=== PATIENT | male | born 1980 | race Caucasian/White ===

== ENCOUNTER → 2016-08-12 | Outpatient (CLI) | payer BC ==
--- NOTE | 2016-08-12 17:30 | REP ---
CT MAXILLOFACIAL WITHOUT CONTRAST: 08/12/2016: Clinical history: Chronic pansinusitis. Technique: Axial soft-tissue and bone windows with coronal bone window reconstructions. Findings: No prior study. There is extensive mucosal thickening and/or polypoid/mucous retention cyst appearance to the bilateral maxillary antra, right more than left. There is occlusion of the OMCs bilaterally due to mucosal thickening, right worse than left. Vestibular stenosis is also noted by mucosal thickening. The middle turbinate show small contra bullosa on the left effacement of the hiatus semilunaris on that side right hiatus semilunaris minimally intact with a small contra bullosa on the left. Ethmoid air cells show mucosal thickening. There is a polypoid enlargement of the right inferior turbinate anteriorly in the nasal air passage. Extensive mucosal thickening and opacification of the ethmoid air cells bilaterally. Frontal ethmoid recesses and inferior aspects of the frontal lobe show mucosal thickening opacification. Sphenoid sinuses show mucosal thickening. No air-fluid levels. There is no destructive lesion of bone. Mastoids, skull base, facial bones, and sinuses. Bony structures as well as orbits grossly intact. Impression: 1. Pansinusitis with mucous retention cyst and/or polyps in the maxillary sinuses and at the anterior aspect of the right inferior turbinate in the nasal air passage on the right. Ethmoid, sphenoid and frontal recess sinus mucosal thickening or opacification noted. Signed by Dennis Amaya MD 08/13/2016 10:07 A
== END ==
LOC: M RAD 15:54
PROVIDERS: ATTEND Otolaryngology
DX: J32.4 Chronic pansinusitis (principal); J34.1 Cyst and mucocele of nose and nasal sinus

== ENCOUNTER 2017-04-20 06:40 | Day surgery (SDC) | payer BC ==
[2017-04-20] MEDS: LR 1,000 ML IV (06:45)
[2017-04-20] MEDS ORDERED: LIDOCAINE 1% MDV 20ML VIAL SC (07:00)
[2017-04-20] MEDS ORDERED: LIDOCAINE 2% INJ 100 MG/5 ML SDV (FOR ANES.) As Ordered (08:07)
[2017-04-20] MEDS ORDERED: ROCURONIUM BROMIDE 50 MG/5 ML VIAL As Ordered (08:07)
[2017-04-20] MEDS ORDERED: dexameTHASONE 4 MG/ML 1ML VIAL (J1100) As Ordered (08:07)
[2017-04-20] MEDS ORDERED: PROPOFOL 200 MG/20 ML VIAL As Ordered (08:07)
[2017-04-20] MEDS ORDERED: fentaNYL 250 MCG/5 ML INJECTION (J3010) As Ordered (08:07)
[2017-04-20] MEDS ORDERED: MIDAZOLAM INJ 2 MG/2 ML VIAL (J2250) As Ordered (08:08)
[2017-04-20] MEDS ORDERED: SEVOFLURANE INHAL SOLN 250 ML BTL As Ordered (08:46)
[2017-04-20] MEDS: EPINEPHrine 1MG/ML INJ 30ML MD-VIAL As Ordered (09:22)
[2017-04-20] MEDS: METHYLENE BLUE 0.5% (5MG/ML) 10 ML AMP (PROVAYBLUE)(Q9968 PER 1MG) As Ordered (09:22)
[2017-04-20] MEDS: LIDOCAINE W/EPINEPHRINE 1% 20ML VIAL As Ordered (09:22)
[2017-04-20] MEDS ORDERED: GLYCOPYRROLATE INJ 0.2 MG/ML 2 ML VIAL As Ordered ×2 (09:41→11:48)
[2017-04-20] MEDS ORDERED: NEOSTIGMINE 10 MG/10 ML VIAL (J2710) As Ordered ×2 (09:41→11:48)
[2017-04-20] MEDS ORDERED: PERCOCET 5MG/325MG TAB As Ordered (10:49)
[2017-04-20] MEDS: PERCOCET 5MG/325MG TAB PO (11:08)
[2017-04-20] MEDS ORDERED: HYDROmorphone HCL 1 MG/ML SYRINGE (J1170) IV (11:15)
[2017-04-20] MEDS ORDERED: ACETAMINOPH W/CODEINE #3 TAB UD PO (11:15)
[2017-04-20] MEDS ORDERED: ONDANSETRON 4MG/2ML VIAL (J2405) IV (11:15)
[2017-04-20] MEDS ORDERED: fentaNYL 100 MCG/2 ML INJECTION (J3010) IV (11:15)
[2017-04-20] MEDS ORDERED: LR 1,000 ML IV ×2 (11:15)
[2017-04-20] MEDS ORDERED: HYDROmorphone HCL 2 MG/ML 1ML VIAL (J1170) As Ordered (11:48)
[2017-04-20] MEDS ORDERED: ONDANSETRON 4MG/2ML VIAL (J2405) As Ordered (11:56)
== END 2017-04-20 12:30 | disposition home or self-care (01) ==
LOC: M SDC 06:40
DX: J32.4 Chronic pansinusitis (principal); J33.9 Nasal polyp, unspecified; J34.2 Deviated nasal septum; J30.9 Allergic rhinitis, unspecified; R06.83 Snoring
CPT/HCPCS: 31255

== ENCOUNTER 2022-02-19 13:01 | Emergency (ER) | payer BC ==
[~2022-02-19] VITALS: Ht 188 cm; Wt 129.3 kg
[2022-02-19] MEDS ORDERED: ASPIRIN 81 MG CHEW TABLET PO ONE (13:20)
[2022-02-19 13:32] LABS: BASO # 0.1 10^3/uL (0.0-0.2); BASO % 0.4 % (0.0-1.0); EOS # 0.2 10^3/uL (0.0-0.5); EOS % 1.7 % (0.0-3.0); HEMATOCRIT 47.5 % (42.0-52.0); HEMOGLOBIN 15.9 g/dl (13.5-17.5); LYMPH # 1.8 10^3/uL (1.5-5.0); LYMPH % 13.9 % (24.0-44.0); MEAN CORPUSCULAR HEMOGLOBIN 29.7 pg (27.0-33.0); MEAN CORPUSCULAR HGB CONC 33.5 g/dl (32.0-36.5); MEAN CORPUSCULAR VOLUME 88.6 fl (80.0-96.0); MONO % 7.4 % (2.0-8.0); NEUTROPHILS # 10.1 10^3/uL (1.5-8.5); NEUTROPHILS % 76.2 % (36.0-66.0); PLATELET COUNT, AUTOMATED 212 10^3/uL (150-450); RED BLOOD COUNT 5.36 10^6/uL (4.30-6.10); WHITE BLOOD COUNT 13.3 10^3/uL (4.0-10.0)
[2022-02-19 13:43] LABS: INR 0.89; PARTIAL THROMBOPLASTIN TIME 26.4 SECONDS (24.8-34.2); PROTHROMBIN TIME 12.2 SECONDS (12.5-14.5)
[2022-02-19] MEDS: NITROGLYCERIN 0.4 MG SUBL TABLET SL PRN ×3 (13:47→14:21)
[2022-02-19 14:21] VITALS: BP 113/63
[2022-02-19 14:36] LABS: ALBUMIN 4.4 G/DL (3.2-5.2); ALT/SGPT 37 U/L (7.0-40); BILIRUBIN,DIRECT 0.2 MG/DL (<0.4); BILIRUBIN,TOTAL 0.5 MG/DL (0.3-1.2); BLOOD UREA NITROGEN 15 MG/DL (9-23); CALCIUM LEVEL 9.6 MG/DL (8.5-10.1); CARBON DIOXIDE LEVEL 28 MMOL/L (20-31); CHLORIDE LEVEL 102 MMOL/L (98-107); CK-MB VALUE MASS < 1.0 NG/ML (<3.6); CPK CREATINE PHOSPHOKINASE 126 U/L (46-171); CREATININE FOR GFR 0.84 MG/DL (0.70-1.30); GLOMERULAR FILTRATION RATE > 60.0 (>60); GLUCOSE, FASTING 105 MG/DL (60-100); LIPASE 31 U/L (12-53); MB/CK RELATIVE INDEX 0.79 (< OR =4); POTASSIUM SERUM 4.6 MMOL/L (3.5-5.1); SODIUM LEVEL 138 MMOL/L (136-145); TOTAL PROTEIN 7.2 G/DL (5.7-8.2)
[2022-02-19 14:52] LABS: CK-MB VALUE MASS < 1.0 NG/ML (<3.6); CPK CREATINE PHOSPHOKINASE 112 U/L (46-171); MB/CK RELATIVE INDEX 0.89 (< OR =4)
[2022-02-19] MEDS ORDERED: ISOVUE-370 76% 100ML VIAL As Ordered ONE (15:00)
[2022-02-19 15:37] LABS: FREE T4 1.26 NG/DL (0.89-1.76)
[2022-02-19 16:16] VITALS: BP 139/73
== END 2022-02-19 16:18 | disposition home or self-care (01) ==
LOC: M ED 13:01
DX: R07.9 Chest pain, unspecified (principal); R06.02 Shortness of breath